=== PATIENT | female | born 1960 | race Caucasian/White ===

== ENCOUNTER 2017-08-30 19:18 | Emergency (ER) | payer OTHER ==
[~2017-08-30] VITALS: Ht 162.6 cm; Wt 86.3 kg
[2017-08-30 19:23] VITALS: BP 160/90; PULSE 116; RESP 18; TEMP 98.3; O2SAT 94
[2017-08-30] MEDS ORDERED: CIPR-9 PO (19:57)
[2017-08-30] MEDS ORDERED: BACT800T5 PO (19:57)
--- NOTE | 2017-08-30 19:57 | PD ---
HPI Chief Complaint: Complaint Time Seen by Provider: 19:40 Travel History International Travel<30 days: No Contact w/Intl Traveler<30days: No Traveled to known affect area: No History of Present Illness HPI 57-year-old female complains of fever, earache, coughing congestion, sinus pressure, postnasal drip, and dysuria and frequency and back pain. Patient states that she started having fever earache coughing congestion about 3 weeks ago. Patient states that she started having facial pressure and postnasal drip subsequently. Patient states her cough is intermittent and productive. Patient denies any chest pain or shortness of breath. Patient states that she has low abdominal pressure and bladder pressure for the past few days. Patient started having dysuria frequency this morning. Patient noted some blood in the urine today. Patient complained of aching back pain. PFSH Past Medical History ?: Not Social History Tobacco Use: No Allergies-Medications (Allergen,Severity, Reaction): Coded Allergies: No Allergy Information Available (Unverified , 08/30/17) pt does not know. pt states "blood pressure meds" Reported Meds & Prescriptions Reported Meds & Active Scripts Active Pyridium (Phenazopyridine HCl) 100 Mg Tab 100 Mg PO Q8H PRN Cipro (Ciprofloxacin HCl) 500 Mg Tab 500 Mg PO BID Bactrim DS (Sulfamethoxazole-Trimethoprim) 800-160 Mg Tab 1 Tab PO BID Review of Systems General / Constitutional: No: Fever Eyes: No: Visual changes HENT: Positive: Congestion, No: Headaches Cardiovascular: No: Chest Pain or Discomfort Respiratory: Positive: Cough, No: Shortness of Breath Gastrointestinal: No: Abdominal Pain Genitourinary: Positive: Frequency, Dysuria Musculoskeletal: No: Pain Skin: No Rash Neurologic: No: Weakness Psychiatric: No: Depression Endocrine: No: Polydipsia Hematologic/Lymphatic: No: Easy Bruising Physical Exam Narrative GENERAL: Well-nourished, well-developed patient. SKIN: Focused skin assessment warm/dry. HEAD: Normocephalic. EYES: No scleral icterus. No injection or drainage. TM: Clear. Throat: Nonerythematous. Patient has tenderness on palpation maxillary sinus area. Nasal mucosa erythematous and boggy. NECK: Supple, trachea midline. No JVD or lymphadenopathy. No meningismus CARDIOVASCULAR: Regular rate and rhythm without murmurs, gallops, or rubs. RESPIRATORY: Breath sounds equal bilaterally. No accessory muscle use. GASTROINTESTINAL: Abdomen soft, non-tender, nondistended. MUSCULOSKELETAL: No cyanosis, or edema. BACK: Nontender without obvious deformity. Mild bilateral CVA tenderness. Data Data Last Documented VS Vital Signs Date Time Temp Pulse Resp B/P (MAP) Pulse Ox O2 Delivery O2 Flow Rate FiO2 08/30/17 20:48 82 16 132/86 (101) 98 08/30/17 19:23 98.3 Orders Orders Urinalysis - C+S If Indicated (08/30/17 19:48) Levofloxacin (Levaquin) (08/30/17 20:00) Ed Discharge Order (08/30/17 20:01) Urine Culture (08/30/17 19:57) Labs Laboratory Tests Test 08/30/17 19:57 Urine Color YELLOW Urine Turbidity CLOUDY Urine pH 5.0 Urine Specific [place] GREATER/EQUAL 1.030 Urine Protein 100 mg/dL Urine Glucose (UA) NEG mg/dL Urine Ketones TRACE mg/dL Urine Occult Blood LARGE Urine Nitrite POS Urine Bilirubin NEG Urine Urobilinogen 1.0 MG/DL Urine Leukocyte Esterase MOD Urine RBC 100-200 /hpf Urine WBC INNUM /hpf Urine WBC Clumps MANY Urine Squamous Epithelial Cells 0-5 /hpf Urine Amorphous Sediment LARGE Urine Bacteria MOD /hpf Microscopic Urinalysis Comment CULTURE INDICATED MDM Medical Decision Making Medical Screen Exam Complete: Yes Emergency Medical Condition: Yes Differential Diagnosis Differential diagnosis including sinusitis, bronchitis, pneumonia, UTI, pyelonephritis. Narrative Course 57-year-old female with sinus pain and sinus pressure and postnasal drip, productive cough, dysuria and frequency and back pain and low abdominal pain. Levaquin 750 mg p.o. given. Diagnosis Primary Impression: Pyelonephritis Additional Impressions: Sinusitis Qualified Codes: J01.00 - Acute maxillary sinusitis, unspecified Bronchitis Patient Instructions: General Instructions Additional Instructions: Take medications as directed. Tylenol for aching pain and fever. Follow-up with personal physician. Return if worse. Med/Other Pt SpecificInfo: Prescription(s) given Scripts Phenazopyridine (Pyridium) 100 Mg Tab 100 MG PO Q8H Y for DYSURIA, #12 TAB 0 Refills Prov: Thaddeus Cooper MD 08/30/17 Ciprofloxacin (Cipro) 500 Mg Tab 500 MG PO BID for Infection, #20 TAB 0 Refills Prov: Thaddeus Cooper MD 08/30/17 Sulfamethoxazole-Trimethoprim (Bactrim DS) 800-160 Mg Tab 1 TAB PO BID for Infection, #20 TAB 0 Refills Prov: Thaddeus Cooper MD 08/30/17 Disposition: 01 DISCHARGE HOME Condition: Stable Thaddeus Cooper MD August 30, 2017 19:57
[2017-08-30] MEDS ORDERED: LEVOFLOXACIN 750 MG TAB PO ONE (20:00)
[2017-08-30] MEDS ORDERED: PHEN0.4T PO (20:00)
[2017-08-30 20:08] LABS: BILIRUBIN, URINE NEG (NEG); BLOOD, URINE LARGE (NEG); GLUCOSE,URINE NEG (NEG); KETONE, URINE TRACE mg/dL (NEG); NITRITE,URINE POS (NEG); URINE COLOR YELLOW (YELLW/STRAW); URINE LEUKOCYTE ESTERASE MOD (NEG)
[2017-08-30 20:26] LABS: AMORPHOUS SEDIMENT, URINE LARGE; BACTERIA, URINE MOD /hpf; RBC, URINE 100-200 /hpf (0-3); SQUAMOUS EPITHELIAL CELL URINE 0-5 /hpf (0-5); WBC, URINE INNUM /hpf (0-5); WHITE BLOOD CELL CLUMPS MANY
[2017-08-30 20:48] VITALS: BP 132/86
== END 2017-08-30 20:49 | disposition home or self-care (01) ==
LOC: PHED 19:18
DX: N12 Tubulo-interstitial nephritis, not specified as acute or chronic (principal); J32.9 Chronic sinusitis, unspecified; J40 Bronchitis, not specified as acute or chronic; B96.20 Unspecified Escherichia coli [E. coli] as the cause of diseases classified elsewhere
CPT/HCPCS: 81001; 87077; 87086; 87186; 99283